=== PATIENT | female | born 1975 | race Caucasian/White ===

== ENCOUNTER 2018-03-15 16:48 | Emergency (ER) | payer BC, OTHER ==
[~2018-03-15] VITALS: Ht 167.6 cm; Wt 111.4 kg
[~2018-03-15 16:48] MED LIST: CLINDAMYCIN HC150 MG PO; NORCO 325 MG-7.1 TAB PO; PRENATAL VITAMI1 TA5 PO; SYNTHROID0.137 MG PO
[2018-03-15 16:54] VITALS: BP 162/88; TEMP 98.5
[2018-03-15 17:50] VITALS: PULSE 67
[2018-03-15] MEDS ORDERED: BACTRIM DS 8001 TAB PO (17:50)
== END 2018-03-15 17:54 | disposition home or self-care (01) ==
LOC: COL.ER 16:48
DX: T81.4XXA Infection following a procedure, initial encounter (principal); Z88.0 Allergy status to penicillin